=== PATIENT | female | born 1960 | race Caucasian/White ===

== ENCOUNTER 2017-11-27 09:26 | Emergency (ER) | payer OTHER ==
[~2017-11-27 09:26] MED LIST: HYDR-3078 PO
[2017-11-27] MEDS ORDERED: ATOR40TA24 PO (09:40)
[2017-11-27] MEDS ORDERED: KETOROLAC 60 MG/2 ML VIAL IM ONE (09:50)
--- NOTE | 2017-11-27 09:51 | ER Report ---
History and Physical Time Seen By MD: 09:40 Hx. of Stated Complaint: PATIENT HAS A HISTORY OF CHRONIC BACK PAIN. IT HAS GOTTEN VERY BAD THE LAST 3-4 DAYS HPI/ROS CHIEF COMPLAINT: Chronic low back pain HISTORY OF PRESENT ILLNESS: 56-year-old female brought to have 3 years of intermittent chronic low back pain patient states this is been worse in the last couple of days localized in the center of her lower back patient denies any urinary bladder bowel incontinence numbness or saddle paresthesias or additional complaints no recent history of trauma REVIEW OF SYSTEMS: Respiratory: No cough, no dyspnea. Cardiovascular: No chest pain, no palpitations. Gastrointestinal: No vomiting, no abdominal pain. Musculoskeletal: Mid low back pain Remainder of the 14 system rev: Yes Allergies: Coded Allergies: Penicillins (Verified Allergy, Unknown, 01/07/11) Home Meds Reported Medications Atorvastatin Calcium (LIPITOR) 40 Mg Tablet, 1 TAB PO QDAY, TAB 11/27/17 Discontinued Reported Medications Hydrocodone Bit/Acetaminophen (Hydrocodone-Apap 5-500 Mg Tab) 1 Each Tablet, 1 EACH PO Q4-6H Y, #15 0 Refills TAKE ONE PILL EVERY 4-6 HOURS NEEDED FOR PAIN. DO NOT DRIVE AFTER TAKING MED. 01/07/11 [None] No Conflict Check, 0 Refills 01/07/11 Reviewed Nurses Notes: Yes Old Medical Records Reviewed: Yes Hx Smoking: Yes Hx Substance Use Disorder: No Hx Alcohol Use: Yes (OCC) Constitutional Vital Sign - Last 24 Hours 11/27/17 09:35 Temp 98.6 Pulse 110 Resp 24 B/P (MAP) 152/83 Pulse Ox 99 O2 Delivery Room Air Physical Exam General appearance: Alert no distress. Respiratory: Chest is non tender, lungs are clear to auscultation. Cardiac: Regular rate and rhythm [ ] Low back examination patient had an indeterminate straight leg lift without counterpressure unclear if this was lack of effort patient's exam otherwise unremarkable pain with extension flexion no midline tenderness or bony step-offs DIFFERENTIAL DIAGNOSIS: After history and physical exam differential diagnosis was considered for chronic versus acute low back pain and herniated disks degenerative disc disease degenerative low back spinal disease Medical Decision Making ED Course/Re-evaluation ED Course ED clinical course medical decision making 56-year-old female comes in with chronic low back pain she has obvious x-rayed changes consistent with degenerative disc disease patient be referred to orthopedics for spinal evaluation Decision to Disposition Date: Nov 27, 2017 Decision to Disposition Time: 11:32 Depart Departure Latest Vital Signs Vital Signs Date Time Temp Pulse Resp B/P (MAP) Pulse Ox O2 Delivery O2 Flow Rate FiO2 11/27/17 09:35 98.6 110 24 152/83 99 Room Air Impression: Primary Impression: Degenerative joint disease of low back Condition: Improved Disposition: HOME OR SELF-CARE Referrals: HANS MYRICK MD 5 Days Patient Instructions: Degenerative Disc Disease (DC) LOLI TSE MD Nov 27, 2017 09:51
--- NOTE | 2017-11-27 11:12 | RADIOLOGY IMAGING REPORT ---
FACILITY: [facility] PATIENT NAME: Margie Lugo : 1960 MR: [id number] V: [id number] EXAM DATE: ORDERING PHYSICIAN: LOLI TSE TECHNOLOGIST: Location: [facility] [place] Patient: Margie Lugo : 1960 Visit/Account:[id number] Date of Sevice: 11/27/2017 LUMBAR SPINE 2 OR 3 VIEW HISTORY: pain Additional history: None COMPARISON: None. FINDINGS: Lumbar spine is aligned. There is advanced disc space narrowing L5-S1 with reactive endplate sclerot ic changes. There is minimal disc space narrowing L2-3 through L 4-5. Disc space height well-mainta ined at L1-2 and the lower thoracic spine. There are no compression fractures. Lumbar spine is alig yasmine. Vascular plaque noted in the infrarenal abdominal aorta and common iliac arteries. IMPRESSION: Degenerative disc disease L2-3 through L5-S1 most advanced at L5-S1. Report Dictated By: Corby Ziegler MD at 11/27/2017 11:05 AM Report E-Signed By: Corby Ziegler MD at 11/27/2017 11:08 AM WSN:[id number]
[2017-11-27 11:43] VITALS: BP 129/98
== END 2017-11-27 11:48 | disposition home or self-care (01) ==
LOC: ER 09:34
DX: M51.36 Other intervertebral disc degeneration, lumbar region (principal); M51.37 Other intervertebral disc degeneration, lumbosacral region
CPT/HCPCS: 72100; 96372; 99283; J1885